=== PATIENT | female | born 1975 | race Two or more races ===

== ENCOUNTER 2017-02-03 14:27 | Emergency (ER) | payer SELFPAY ==
--- NOTE | ~2017-02-03 | ER ---
PATIENT'S NAME: [facility] AGE: 41 Y [address] ROOM: [place] [id number] LOCATION: [facility] ADMIT DATE: 02/03/2017 ER/Outpatient Report DISCHARGE DATE: 02/03/2017 FAMILY PHYSICIAN: Physician, Unknown ATTENDING PHYSICIAN: Tamika Samson Time of Arrival: 1506 hours. Time of Evaluation: 1520 hours. CHIEF COMPLAINT: Six weeks , spotting. HISTORY OF PRESENT ILLNESS: The patient does not speak [place]. 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 Daughter is with her. She also speaks [place] Island[place] and [place]. The patient states approximately 2 hours prior to her arrival, she went to the bathroom and when she wiped, she noticed blood. She has had some urinary frequency and pain with urination, but this is the first that she had noted any blood. She states [place] [facility] [place] and has not had any problems prior to this. Her last menstrual period was 12/16/2016, due date would be approximately 09/22/2017. She is a 3, para 2, AB 0. She denies having any abdominal discomfort. She has some generalized low back pain. She states that she has had some pressure when she urinates and that started approximately 3-4 days ago. She has not had a bowel movement for 3 days. ALLERGIES: ON HER CHART AND WERE REVIEWED BY ME. MEDICATIONS: On her chart and were reviewed by me. PAST MEDICAL HISTORY: [id number] diabetes. PAST SURGERIES: x2. SOCIAL HISTORY: Denies use of tobacco, drugs, or alcohol. ROS: All negative other than those mentioned in the HPI. PHYSICAL EXAMINATION: PATIENT'S NAME: [facility] AGE: 41 Y [address] ROOM: [place], [place] [address] LOCATION: [facility] ADMIT DATE: 02/03/2017 ER/Outpatient Report DISCHARGE DATE: 02/03/2017 FAMILY PHYSICIAN: Physician, Unknown ATTENDING PHYSICIAN: Tamika Samson VITAL SIGNS: She weighed 72.5 kg, blood pressure 117/68, pulse is 67, respirations 16, temperature of 97.6, O2 saturations 97% on room air. GENERAL: She is awake, alert, and oriented x4. SKIN: [place], warm, and dry. RESPIRATIONS: Even and nonlabored. LUNGS: Lung sounds are clear throughout. HEART: Regular rate and rhythm. ABDOMEN: Soft and nondistended. Bowel sounds are present. She walked in with a steady even gait. EMERGENCY CARE: CBC is within normal limits. Chem panel is within normal limits. Serum hCG was 2322. Clean-catch UA had 25 leukocytes and did have 150 blood. Negative for bacteria, white cells were only 0-2. Blood type is O positive. Ultrasound was completed. Radiologist reports there is a single intrauterine gestational sac, a single fetus with no cardiac activity. Shows to be 7 weeks and probable early demise. Otherwise, normal ultrasound. IMPRESSION: Threatened miscarriage. PLAN: Discussed with the patient. Home, rest, fluids. No lifting, nothing in the vaginal area. No tampons, no sexual intercourse. I did give her the name for [facility]. Encouraged her to call and make an appointment to see them on Wednesday, to recheck lab, and possible repeat ultrasound. The patient and her daughter verbalized understanding. JOVITA SEAMAN APRN FOR MD RONEN BERNARDO/howard /[id number] d: 02/04/17 0152 t: 02/06/17 1929, OUTPATIENT REPORT
[2017-02-03 15:41] LABS: BILIRUBIN URINE NEGATIVE (NEGATIVE); BLOOD URINE 150 /UL (NEGATIVE); COLOR URINE YELLOW (YELLOW); GLUCOSE URINE NEGATIVE (NEGATIVE); KETONE URINE NEGATIVE (NEGATIVE); LEUKOCYTES URINE 25 /UL (NEGATIVE); NITRITE URINE NEGATIVE (NEGATIVE); PROTEIN URINE NEGATIVE (NEGATIVE); TURBIDITY URINE CLEAR (CLEAR); UROBILINOGEN URINE 1 mg/dL (NORMAL)
[2017-02-03 15:45] LABS: BASOPHIL % 0.2 %; EOSINOPHIL # 0.1 K/uL (0.0-0.5); EOSINOPHIL % 1.5 %; HEMATOCRIT 40.1 % (33.0-46.0); HEMOGLOBIN 12.6 g/dL (10.0-15.0); IMMATURE GRANULOCYTE % 0.4 %; LYMPHOCYTE # 2.8 K/uL (0.8-4.0); LYMPHOCYTE % 31.1 %; MCH 26.4 pg (27.0-34.0); MCHC 31.4 gm/dL (32.0-36.5); MCV 84.1 fl (83.0-98.0); MONOCYTE # 0.5 K/uL (0.0-1.0); MONOCYTE % 5.5 %; MPV 9.8 fl (9.4-12.4); NEUTROPHIL # (ANC) 5.6 K/uL (1.8-7.8); NEUTROPHIL % 61.3 %; NRBC % 0 /100WBC (0-0.00); PLATELET COUNT 370 K/uL (150-450); RBC 4.77 M/uL (3.50-5.50); RDW-CV 14.4 % (11.9-14.6); WBC 9.1 K/uL (4.0-11.0)
[2017-02-03 15:55] LABS: WBC URINE 0-2 #/HPF (NEGATIVE)
[2017-02-03 15:56] LABS: AMORPHOUS URINE 1+ (NEGATIVE); BACTERIA URINE NEGATIVE (NEGATIVE); CRYSTALS URINE CALCIUM OXALATE (NEGATIVE); EPITHELIAL URINE 0-2 #/HPF (NEGATIVE); RBC URINE 0-2 #/HPF (NEGATIVE)
[2017-02-03 16:07] LABS: ALBUMIN 3.4 gm/dL (3.5-5.0); ALK PHOS 68 IU/L (33-138); ALT 52 IU/L (12-78); AST 29 IU/L (10-40); BLOOD UREA NITROGEN 15 mg/dL (6-24); CALCIUM 8.8 mg/dL (8.5-10.5); CHLORIDE 105 mMol/L (96-110); CO2 27 mMol/L (22-32); CREATININE 0.9 mg/dL (0.5-1.1); ESTIMATED GFR (MDRD EQUATION) > 60; SODIUM 139 mMol/L (135-145); TOTAL BILIRUBIN 0.3 mg/dL (0.0-1.5); TOTAL PROTEIN 7.3 g/dL (6.0-8.4)
== END 2017-02-03 16:59 | disposition disaster alternative care site (69) ==
LOC: GMED 14:27
PROVIDERS: Nurse Practitioner Family
DX: O20.0 Threatened abortion (principal); O24.911 Unspecified diabetes mellitus in pregnancy, first trimester; Z88.6 Allergy status to analgesic agent; Z3A.01 Less than 8 weeks gestation of pregnancy